=== PATIENT | male | born 1945 | race Caucasian/White ===

== ENCOUNTER 2017-08-03 11:20 | Emergency (ER) | payer OTHER ==
[~2017-08-03] VITALS: Ht 188 cm; Wt 117.9 kg
[2017-08-03] MEDS ORDERED: ASPIRIN EC81 M1 PO (11:29)
[2017-08-03] MEDS ORDERED: LIPITOR 20 MG T20 M1 PO (11:29)
[2017-08-03] MEDS ORDERED: PERCOCET 5-3251 EACH PO (14:07)
[2017-08-03 14:39] VITALS: BP 197/80
== END 2017-08-03 14:41 | disposition home or self-care (01) ==
LOC: M.ERS 11:20
DX: S83.411A Sprain of medial collateral ligament of right knee, initial encounter (principal); S93.401A Sprain of unspecified ligament of right ankle, initial encounter; S63.501A Unspecified sprain of right wrist, initial encounter; I10 Essential (primary) hypertension; E78.5 Hyperlipidemia, unspecified; Z88.5 Allergy status to narcotic agent; Z88.0 Allergy status to penicillin; Z88.8 Allergy status to other drugs, medicaments and biological substances; W00.0XXA Fall on same level due to ice and snow, initial encounter; Y93.89 Activity, other specified; Y92.89 Other specified places as the place of occurrence of the external cause; Y99.8 Other external cause status

== ENCOUNTER 2018-07-19 18:38 | Inpatient (IN) | payer OTHER ==
[~2018-07-19] VITALS: Ht 185.4 cm; Wt 114.8 kg
[~2018-07-19 18:38] MED LIST: ASPIRIN EC81 M1 PO; LIPITOR 20 MG T20 M1 PO; PERCOCET 5-3251 EACH PO
[2018-07-19 18:47] VITALS: BP 193/93
[2018-07-19] MEDS ORDERED: LOPRESSOR25 PO (18:50)
[2018-07-19] MEDS ORDERED: PRINIVIL20 M1 PO (18:50)
[2018-07-19] MEDS ORDERED: ZOCOR20 MG PO (18:50)
[2018-07-19 19:24] LABS: ABSOLUTE BASOPHILS 0.1 thou/uL (0.0-0.2); ABSOLUTE EOSINOPHILS 0.4 thou/uL (0.0-0.7); ABSOLUTE LYMPHOCYTES 2.1 thou/uL (0.8-5.3); ABSOLUTE MONOCYTES 0.7 thou/uL (0.0-1.2); ABSOLUTE NEUTROPHILS 6.4 thou/uL (1.6-8.1); BASOPHILS 0.8 %; EOSINOPHILS 4.3 %; HEMATOCRIT 43.5 % (42.0-52.0); HEMOGLOBIN 14.3 gm/dL (14.0-18.0); LYMPHOCYTES 21.6 %; MCH 31.8 pg (26.0-34.0); MCHC 32.8 g/dL (28.0-37.0); MCV 97.1 fL (80.0-100.0); MPV 8.7 fl. (7.2-11.1); NUCLEATED RBCS 0 /100WBC; PLATELET COUNT* 234 thou/uL (150-400); POLYS 66.3 %; RBC 4.48 mil/uL (4.50-6.00); RDW-CV 13.9 % (10.5-14.5); WBC 9.7 thou/uL (4.0-11.0)
[2018-07-19 19:27] LABS: ANION GAP 10 mmol/L (7-16); BUN 14 mg/dL (7-18); CALCIUM 8.7 mg/dL (8.5-10.1); CHLORIDE 100 mmol/L (98-107); CO2 27 mmol/L (21-32); CREATININE 1.2 mg/dL (0.6-1.3); GLUCOSE 103 mg/dL (70-99); POTASSIUM 3.9 mmol/L (3.5-5.1); SODIUM 137 mmol/L (136-145)
[2018-07-19 19:31] LABS: APTT 27.1 Seconds (25.0-31.3); PROTIME 10.4 Seconds (9.20-11.50)
[2018-07-19 19:33] LABS: ALBUMIN 3.9 g/dL (3.4-5.0); ALKALINE PHOSPHATASE 96 U/L (46-116); CHOLESTEROL 170 mg/dL (<200); HDL CHOLESTEROL 57 mg/dL (>40); LDL CHOLESTEROL 83 mg/dL (<100); SERUM ASSESSMENT CLEAR; SGOT 18 U/L (15-37); SGPT 16 U/L (30-65); TOTAL BILIRUBIN 0.6 mg/dL (<0.1-1.0); TOTAL PROTEIN 7.5 g/dL (6.4-8.2); TRIGLYCERIDE 151 mg/dL (<150); TROPONIN-I LEVEL 0.36 ng/mL (<0.06); VLDL 30 mg/dL (<40)
[2018-07-19 19:40] VITALS: BP 164/90
[2018-07-19] MEDS ORDERED: SALONPAS DEEP R78 GM TOP (21:56)
[2018-07-19] MEDS ORDERED: TYLENOL EXTRA500 MG PO (21:58)
[2018-07-19 22:00] VITALS: BP 148/72
[2018-07-19 23:00] VITALS: BP 149/80
--- NOTE | 2018-07-19 23:32 | NUR ---
ADMITTED TO ICU BED 4 AT 2049 FROM LAMINATOR, SEE ASSESSMENTS. R GROIN SHEATH IN PLACE, DRESSING C/D/I WITH NO BRUISING OR HEMATOMA, DISTAL PULSES EQUAL. PT DENIES TINGLING NUMBNESS OF RLE. CHEST PAIN, SOA, AND ANY OTHER DISCOMFORT. HOME MED LIST BROUGHT BY , UPDATED IN MED RECONCILIATION. PT AND FAMILY ORIENTED TO ROOM AND ICU PROCEDURES, VERBALIZED UNDERSTANDING. CALL LIGHT WITHIN REACH.
[2018-07-20] VITALS (20 sets, daily range): BP systolic 119–181; BP diastolic 42–99
[2018-07-20 02:26] LABS: HEMATOCRIT 39.2 % (42.0-52.0); HEMOGLOBIN 13.1 gm/dL (14.0-18.0); MCH 31.7 pg (26.0-34.0); MCHC 33.3 g/dL (28.0-37.0); MPV 8.5 fl. (7.2-11.1); RBC 4.13 mil/uL (4.50-6.00); RDW-CV 14.1 % (10.5-14.5); WBC 7.8 thou/uL (4.0-11.0)
[2018-07-20 02:45] LABS: ALBUMIN 3.4 g/dL (3.4-5.0); CALCIUM 8.8 mg/dL (8.5-10.1); CREATININE 1.1 mg/dL (0.6-1.3); TOTAL BILIRUBIN 0.7 mg/dL (<0.1-1.0); TOTAL PROTEIN 6.6 g/dL (6.4-8.2)
[2018-07-20 02:58] LABS: TROPONIN-I LEVEL 16.18 ng/mL (<0.06)
--- NOTE | 2018-07-20 03:10 | NUR ---
SHEAT REMOVED AT 0215. CONTINUOUS MANUAL PRESSURE HELD FOR 30 MINUTES AND GRADUALLY RELEASED. HOMEOSTASIS OBTAINED AT 0250. DRESSING C/D/I, <1CM HEMATOMA PRESENT, MINIMAL BRUISING PRESENT. NO CHANGE IN DISTAL PULSES OR SENSATION.
--- NOTE | 2018-07-20 06:50 | NUR ---
PATIENT DENIES CHEST PAIN, NAUSEA, SWEATING, SOB SINCE ON UNIT. ARTERIAL SHEATH REMOVED AT 0215, PATIENT TOLERATED WELL. NO BLEEDING, SWELLING, REDNESS AT SITE, DRESSING DRY AND INTACT. Q2 TURNS WITH PILLOWS WHILE KEEPING RIGHT LOWER EXTREMITY STRAIGHT. O2 NC REMOVED AT 0300, PATIENT KEEPS SPO2>93%. CALL LIGHT WITHIN REACH.
[2018-07-20] MEDS ORDERED: MOBIC15 MG PO (07:33)
[2018-07-20] MEDS ORDERED: ATROVENT HFA14 GM INH (07:44)
[2018-07-20] MEDS ORDERED: VENTOLIN HFA 1818 GM INH (07:45)
--- NOTE | 2018-07-20 08:07 | CARD ---
[address] [address] CARDIAC CATH REPORT Name: ANNITA LUGO JR Room: [address] IN [facility]#: [id number] Admission: 07/19/18 Attend Phys: Andi Schumacher MD Discharge: Date of : 45 Report #: [id number] THIS REPORT FOR: //name// APPROVED REPORT Study performed: 07/19/2018 19:22:21 Patient Details Patient Status: ED Room #: 18 The patient is a 72 year-old male Event Personnel Mir Collins Medical Examiner, Maye Townsend RN Material Reprocessing Associate, Jyoti Carrera RN Monitor, Murali Lo (R) Scrub Procedures Performed Art Access - R femoral artery* Left Heart Cath w/or w/o Coronaries [facility] Revasc AMI Total/Sub Single RCA Indication STEMI (>0 to less than or equal to 6 hours), Dyspnea, Chest pain Risk Factors Hypercholesterolemia, Hypertension Admission/Lab Medications/Medications given during procedure Aspirin, Heparin Low Molecular Weight, Platelet Aff. Inhib. Procedure Narrative The patient was brought emergently to the Cardiac Catheterization Laboratory and was prepped and draped in a sterile manner. The right femoral was infiltrated with 2% Lidocaine subcutaneous anesthesia. A 6fr Ultimum Sheath sheath was inserted into the right femoral artery. Coronary angiography was performed using coronary diagnostic catheters. The right coronary system was accessed and visualized with a 6Fr JR4 catheter. The left coronary system was accessed and visualized with a 6FrJL4 catheter. The left ventricle was accessed and visualized with a 6Fr Pigtail catheter. Hemostasis was obtained with manual pressure following sheath removal without any complications. The patient tolerated the procedure well and there were no complications associated with the procedure. Fluoro Time: 11.1 [place] [address] CARDIAC CATH REPORT Name: ANNITA LUGO JR Room: [address] IN [facility]#: [id number] Admission: 07/19/18 Attend Phys: Andi Schumacher MD Discharge: Date of : 45 Report #: [id number] Dose: DAP 22365 cGycm2 1760 mGy Contrast Type and Amount: Visipaque 230 ml Coronary Angiography The patient's coronary anatomy is right dominant. Diagnostic Cath Left Main This is a moderate to large caliber vessel, with mild disease at the ostium, less than 20%. LAD This is a moderate size caliber vessel, traversing the anterior wall and wrapping around the apex. There is mild diffuse disease in the proximal and mid segments, less than 20%. Diagonal 1 There is mild to moderate diffuse disease in the proximal segment, 30-40%. Circumflex There is a moderate stenosis at the ostium, 40%. OM1 This is a moderate size caliber vessel, with a borderline stenosis in the proximal segment, 60%. OM2 This is a small-caliber vessel, with no flow-limiting lesions. Right Coronary This is a dominant vessel with a total occlusion in the midsegment. R PDA This is a patent vessel, with no flow-limiting lesions. RPLV This is a patent vessel, with no flow-limiting lesions. Left Ventriculography The left ventricle is mildly dilated in size with decreased contractility. The left ventricular ejection fraction is estimated to be 35%. There is hypokinesis of the inferior wall. Hemodynamics The aortic pressure is 163/75 mmHg with a mean of 109 mmHg. The left ventricular pressure is 131/2 mmHg with a mean of mmHg. The left ventricular end diastolic pressure is 16 mmHg. Pullback from the left ventricle to the aorta revealed no gradient across the aortic valve. PCI Technique Lesion Anticoagulation was achieved with Angiomax. Patient was preloaded with Angiomax IV 16.5 ml. Percutaneous coronary intervention was performed on the mid right coronary artery. The lesion stenosis prior to intervention was 100% with ELLY 0 flow. A Launcher JR 4 6FR Guide Catheter was used to engage the ostium. A KARL: Jose Wire 180 Interventional Guidewire was used to cross the lesion[place] [address] CARDIAC CATH REPORT Name: ANNITA LUGO JR Room: [facility] IN M.R.#: [id number] Admission: 07/19/18 Attend Phys: Andi Schumacher MD Discharge: Date of : 45 Report #: [id number] A Balloon catheter Mini Trek RX 2.0 X 15 was inserted and inflated up to 12.00atm for 7seconds. Additional Inflation: 14.00atm for 6seconds. STENT DEPLOYMENT A drug-eluting stent Xience Alpine RX 3.0X18 was inserted and inflated up to 10.00atm for 14seconds. Additional Inflation: 12.00atm for 12seconds. At the distal edge of the stent, there appeared to be a dissection- a second stent was dilated over this area, overlapping the first stent. POST STENT DEPLOYMENT BALLOON DILATION A Balloon catheter NC Trek RX 3.25 X 12 was inserted and inflated up to 18.00atm for 14seconds. Final angiography reveals 0 % stenosis with ELLY 3 flow. STENT DEPLOYMENT A drug-eluting stent Xience Ema 3.0X12mm was inserted and inflated up to 12.00atm for 12seconds. Additional Inflation: 14.00atm for 8seconds. POST STENT DEPLOYMENT BALLOON DILATION A Balloon catheter NC Trek RX 3.25 X 12 was inserted and inflated up to 16.00atm for 18seconds. Additional Inflation: 18.00atm for 14seconds. Conclusion 1. Successful insertion of drug-eluting stents into the total occlusion in the mid RCA segment. 2. Borderline stenosis in OM1. 3. At least moderate segmental LV dysfunction. 4. Recommend dual antiplatelet therapy and aggressive risk factor management. <ELECTRONICALLY SIGNED> By: Mir Collins MD 07/20/18805 5 5Mir Collins MD /INF
--- NOTE | 2018-07-20 08:39 | CON ---
[address] [address] CONSULTATION Name: ANNITA LUGO JR Room: [address] IN ..#: [id number] Admission: 07/19/18 Attend Phys: Andi Schumacher MD Discharge: Date of : 45 Report #: [id number] THIS REPORT FOR: //name// CC: Servando Schumacher DATE OF SERVICE: 07/19/2018 CARDIOLOGY CONSULTATION INDICATION: Chest pain. HISTORY OF PRESENT ILLNESS: This is a 72-year-old gentleman with a history of hypertension, hypercholesterolemia and arthritis, presenting with chest discomfort. Around 04:00 p.m. this afternoon, he developed a mild discomfort in the upper neck area, associated with mild dyspnea. He went home and the pain persisted. He denies any fever, chills, nausea or diarrhea. He came to the ER approximately 2 hours after the onset of symptoms. The ECG revealed mild ST-elevation in the inferior leads. He was noted to be hypertensive. He was treated with aspirin, Brilinta and heparin. PAST MEDICAL HISTORY: Hypertension, hypercholesterolemia, osteoarthritis with recent knee surgery. ALLERGIES: INCLUDE HYDROCODONE AND PENICILLIN. MEDICATIONS: Include aspirin 81 mg, simvastatin 40 mg, metoprolol 25 mg and lisinopril 20 mg daily. SOCIAL HISTORY: He denies tobacco use. FAMILY HISTORY: Negative for premature CAD. REVIEW OF SYSTEMS: A full 10-point review of systems is performed. Only the pertinent positives and negatives are described in the HPI. PHYSICAL EXAMINATION: VITAL SIGNS: Initial blood pressure is 190/80, heart rate of 80 beats per minute. GENERAL APPEARANCE: This is an elderly appearing male, in mild distress. HEENT: Normocephalic, atraumatic. Oral mucosa moist. NECK: Supple. LUNGS: CTA. CARDIAC: Regular rate and rhythm, S1, S2 positive. ABDOMEN: Soft, nontender. EXTREMITIES: No [place] [address] CONSULTATION Name: BRITTNEYANNITA Cherri HERNANDEZ Room: [address] IN [facility]#: [id number] Admission: 07/19/18 Attend Phys: Andi Schumacher MD Discharge: Date of : 45 Report #: [id number] NEUROLOGIC: Alert and oriented x 3. LABORATORY DATA: Laboratory values are pending. ECG reveals sinus rhythm, 1-mm ST elevation in the inferior leads, reciprocal ST segment depressions in the precordial leads. ASSESSMENT AND PLAN: 1. Acute inferior wall myocardial infarction. The patient was treated with aspirin, Brilinta, and heparin. He will be taken emergently to the cardiac lab support service tech. 2. Hypertension, elevated due to ongoing ischemia. We will continue home medications. 3. Hypercholesterolemia, tolerating statin therapy, reports no myalgias. <ELECTRONICALLY SIGNED> By: Mir Collins MD 07/20/18 0839 41 [id number] carl Canseco
--- NOTE | 2018-07-20 12:55 | NUR ---
PATIENT REMAINS A&O X 4, PLEASANT AND COOPERATIVE WITH CARES. DENIES CHEST PAIN OR SOB. RIGHT GROIN SITE IS C/D/I WITHOUT HEMATOMA. AT BEDSIDE. NO FURTHER CONCERNS AT THIS TIME. WILL CONTINUE TO MONITOR AND CARE PER PLAN OF CARE.
--- NOTE | 2018-07-20 13:45 | EKG ---
[place] [address] ELECTROCARDIOGRAM REPORT Name: ANNITA LUGO JR Room: [address] ADM IN M.R.#: [id number] Admission: 07/19/18 Attend Phys: Andi Schumacher MD Discharge: Date of : 45 Report #: [id number] THIS REPORT FOR: //name// [facility] ED Test Date: 2018-07-19 Test Time: 18:48:04 Pat Name: ANNITA LUGO Department: Room: [address] Gender: M Fruit Pitter: Jese PENNY : 1945 Requested By: Mir Collins Order Number: [id number] Darrius MD: Eric Cespedes Measurements Intervals [place] Rate: 88 P: 61 MA: 184 QRS: 54 QRSD: 120 T: -30 QT: 380 QTc: 460 Interpretive Statements Sinus rhythm Nonspecific intraventricular conduction delay Inferior infarct, age indeterminate No previous ECG available for comparison Electronically Signed On 07-20-2018 13:45:11 JAVA FRONT END WEB DEVELOPER by Eric Cespedes [email or web address] <ELECTRONICALLY SIGNED> By: Eric Cespedes MD, [facility] 07/20/18 1345 1848 1848 Eric Cespedes MD, FACC /EPI
--- NOTE | 2018-07-20 13:47 | EKG ---
[place] [address] ELECTROCARDIOGRAM REPORT Name: ANNITA LUGO JR Room: [address] ADM IN M.R.#: [id number] Admission: 07/19/18 Attend Phys: Andi Schumacher MD Discharge: Date of : 45 Report #: [id number] THIS REPORT FOR: //name// [facility] Test Date: 2018-07-19 Test Time: 22:44:38 Pat Name: ANNITA LUGO Department: Room: [facility] Gender: M Rug Designer: UNKNOWN : 1945 Requested By: Lyric Duarte Order Number: [id number] MD: Eric Cespedes Measurements Intervals [place] Rate: 80 P: 80 [place]: 167 QRS: 52 QRSD: 110 T: -55 QT: 431 QTc: 498 Interpretive Statements Sinus rhythm Inferior infarct, age indeterminate Electronically Signed On 07-20-2018 13:47:29 SPECIAL FORCES ENGINEER SERGEANT by Eric Cespedes [email or web address] <ELECTRONICALLY SIGNED> By: Eric Cespedes MD, [facility] 07/20/18 1347 2244 2244 Eric Cespedes MD, FACC /EPI
--- NOTE | 2018-07-20 13:53 | EKG ---
[place] [address] ELECTROCARDIOGRAM REPORT Name: ANNITA LUGO JR Room: [address] ADM IN M.R.#: [id number] Admission: 07/19/18 Attend Phys: Andi Schumacher MD Discharge: Date of : 45 Report #: [id number] THIS REPORT FOR: //name// Test Date: 2018-07-20 Test Time: 09:36:28 Pat Name: ANNITA LUGO Department: Room: [address] Gender: M Caretaker Grounds: : 1945 Requested By: Mir Collins Order Number: [id number] Darrius MD: Eric Cespedes Measurements Intervals [place] Rate: 75 P: 67 NC: 159 QRS: 35 QRSD: 110 T: -55 QT: 449 QTc: 502 Interpretive Statements Sinus rhythm Inferior infarct, age indeterminate Prolonged QT interval Electronically Signed On 07-20-2018 13:53:30 INFANTRY WEAPONS CREWMEMBER by Eric Cespedes [email or web address] <ELECTRONICALLY SIGNED> By: Eric Cespedes MD, [facility] 07/20/18 1353 0936 0936 Eric Cespedes MD, FACC /EPI
--- NOTE | 2018-07-20 15:00 | NUR ---
SPOKE WITH PT. HE LIVES WITH HIS , HAS BEEN ACTIVE AND INDEP. PT PLANS TO FOLLOW UP WITH HIS OWN HEARING AND SPEECH ASSISTANT, DR. MIGUEL FLORES AT COUNT INCLUDES THE [facility] IN [place]. DR. FLORES'S CONTACT INFORMATION ADDED TO PT'S DISCHARGE INSTRUCTIONS. PT DENIES ANY DISCHARGE NEEDS, WANTS TO GO HOME TODAY.
[2018-07-20 19:07] LABS: GLYCOHEMOGLOBIN (HGB A1C) 5.7 % (4.8-5.6)
[2018-07-21] VITALS (11 sets, daily range): BP systolic 119–150; BP diastolic 54–77
--- NOTE | 2018-07-21 04:26 | NUR ---
PT IS PROGRESSING WELL DURING NOC SHIFT WITH NO COMPLAINTS OF CHEST PAINS OR SHORTNESS OF BREATH. ASSESSMENT CHARTED. PLANS ARE FOR DC TODAY WITH PT FOLLOWING UP WITH PROFESSOR OF SPECIAL EDUCATION OUTPATIENT. CALL LIGHT IN REACH. CONTINUE OF PLAN OF CARE.
[2018-07-21] MEDS ORDERED: NITROGLYCERIN0.4 MG SUBLING (10:38)
[2018-07-21] MEDS ORDERED: PLAVIX 75 MG TA75 M1 PO (10:39)
[2018-07-21] MEDS ORDERED: TOPROL XL25 MG PO (10:46)
[2018-07-21] MEDS ORDERED: ZOCOR20 MG PO (10:54)
--- NOTE | 2018-07-21 11:58 | EKG ---
[place] [address] ELECTROCARDIOGRAM REPORT Name: ANNITA LUGO JR Room: [address] ADM IN M.R.#: [id number] Admission: 07/19/18 Attend Phys: Andi Schumacher MD Discharge: Date of : 45 Report #: [id number] THIS REPORT FOR: //name// [facility] Test Date: 2018-07-21 Test Time: 07:49:00 Pat Name: ANNITA LUGO Department: Room: [address] Gender: M Director Financial Analysis: : 1945 Requested By: Eric Cespedes Order Number: [id number] Reading MD: Eric Cespedes Measurements Intervals [place] Rate: 67 P: 69 MD: 171 QRS: 50 QRSD: 117 T: -63 QT: 443 QTc: 468 Interpretive Statements Sinus rhythm Nonspecific intraventricular conduction delay Inferior infarct, age indeterminate Compared to ECG 07/20/2018 09:36:28 Intraventricular conduction delay now present Prolonged QT interval no longer present Myocardial infarct finding still present Electronically Signed On 07-21-2018 11:57:49 COMMERCIAL LENDING RELATIONSHIP MANAGER by Eric Cespedes [email or web address] <ELECTRONICALLY SIGNED> By: Eric Cespedes MD, [facility] 07/21/18 1157 0749 0749 Eric Cespedes MD, [facility] /EPI
--- NOTE | 2018-07-21 12:23 | NUR ---
PT DISCHARGED AT 1215. PT ORDERS HAD ASPIRIN 81MG PO EVERY OTHER DAY. PT WAS TOLD ASPIRIN DAILY. PT DID NOT WANT TO STAY TO CLARIFY ORDERS. PT REQUESTED A PHONE CALL WHEN DR SANTACRUZ CALLED BACK TO CLARIFY. DR. SANTACRUZ ORDERED ASPIRIN 81MG PO DAILY. CALLED PATIENT AND NOTIFIED HIM OF NEW ORDER.
== END 2018-07-21 12:15 | disposition home or self-care (01) | DRG 246 ==
LOC: M.CL 18:38 → M.ERS 18:38 → M.ICU 19:49 → M.TBA 19:49 → M.ICU 20:22
PROVIDERS: Internal Medicine Cardiovascular Disease; Personal Emergency Response Attendant; ADMIT Internal Medicine
PROC: 027035Z Dilation of Coronary Artery, One Artery with Two Drug-eluting Intraluminal Devices, Percutaneous Approach (ICD-10-PCS; principal; 2018-07-19)
PROC: 4A023N7 Measurement of Cardiac Sampling and Pressure, Left Heart, Percutaneous Approach (ICD-10-PCS; principal; 2018-07-19)
PROC: B211YZZ Fluoroscopy of Multiple Coronary Arteries using Other Contrast (ICD-10-PCS; principal; 2018-07-19)
DX: I21.19 ST elevation (STEMI) myocardial infarction involving other coronary artery of inferior wall (principal); I50.21 Acute systolic (congestive) heart failure; I11.0 Hypertensive heart disease with heart failure; E78.5 Hyperlipidemia, unspecified; E78.00 Pure hypercholesterolemia, unspecified; M19.90 Unspecified osteoarthritis, unspecified site; Z96.652 Presence of left artificial knee joint; I48.0 Paroxysmal atrial fibrillation; R73.9 Hyperglycemia, unspecified; I25.10 Atherosclerotic heart disease of native coronary artery without angina pectoris; Z79.899 Other long term (current) drug therapy; Z88.6 Allergy status to analgesic agent; Z88.0 Allergy status to penicillin; Z88.8 Allergy status to other drugs, medicaments and biological substances; Z87.891 Personal history of nicotine dependence

== ENCOUNTER 2019-04-12 16:54 | Inpatient (IN) | payer OTHER ==
[~2019-04-12] VITALS: Ht 185.4 cm; Wt 119.3 kg
[~2019-04-12 16:54] MED LIST changes: +ATROVENT HFA14 GM INH; +LOPRESSOR25 PO; +MOBIC15 MG PO; +NITROGLYCERIN0.4 MG SUBLING; +PLAVIX 75 MG TA75 M1 PO; +PRINIVIL20 M1 PO; +SALONPAS DEEP R78 GM TOP; +TOPROL XL25 MG PO; +TYLENOL EXTRA500 MG PO; +VENTOLIN HFA 1818 GM INH; +ZOCOR20 MG PO
[2019-04-12 17:04] VITALS: BP 140/116
[2019-04-12] MEDS ORDERED: AUGMENTIN 500-1 EACH PO (17:13)
[2019-04-12 17:39] LABS: ABSOLUTE BASOPHILS 0.1 thou/uL (0.0-0.2); ABSOLUTE EOSINOPHILS 0.6 thou/uL (0.0-0.7); ABSOLUTE LYMPHOCYTES 0.5 thou/uL (0.8-5.3); ABSOLUTE MONOCYTES 1.1 thou/uL (0.0-1.2); ABSOLUTE NEUTROPHILS 10.9 thou/uL (1.6-8.1); BASOPHILS 0.6 %; EOSINOPHILS 4.4 %; HEMATOCRIT 41.8 % (42.0-52.0); HEMOGLOBIN 13.9 gm/dL (14.0-18.0); LYMPHOCYTES 3.6 %; MCH 31.7 pg (26.0-34.0); MCHC 33.3 g/dL (28.0-37.0); MCV 95.2 fL (80.0-100.0); MONOCYTES 8.6 %; MPV 8.7 fl. (7.2-11.1); NUCLEATED RBCS 0 /100WBC; PLATELET COUNT* 237 thou/uL (150-400); POLYS 82.8 %; RBC 4.39 mil/uL (4.50-6.00); RDW-CV 13.3 % (10.5-14.5); WBC 13.1 thou/uL (4.0-11.0)
[2019-04-12 17:47] LABS: ANION GAP 10 mmol/L (7-16); BUN 15 mg/dL (7-18); CALCIUM 8.6 mg/dL (8.5-10.1); CHLORIDE 100 mmol/L (98-107); CO2 24 mmol/L (21-32); CREATININE 1.4 mg/dL (0.6-1.3); GLUCOSE 112 mg/dL (70-99); POTASSIUM 4.2 mmol/L (3.5-5.1); SODIUM 134 mmol/L (136-145)
[2019-04-12 17:58] LABS: ALBUMIN 3.4 g/dL (3.4-5.0); ALKALINE PHOSPHATASE 110 U/L (46-116); NT-PRO BRAIN NAT PEPTIDE 302 pg/mL (<300); SGOT 11 U/L (15-37); SGPT 16 U/L (30-65); TROPONIN-I LEVEL <0.06 ng/mL (<0.06)
[2019-04-12 19:45] VITALS: BP 136/53
[2019-04-12 21:00] VITALS: BP 105/42
[2019-04-13] VITALS (7 sets, daily range): BP systolic 108–144; BP diastolic 45–84
[2019-04-13 04:29] LABS: HEMATOCRIT 39.8 % (42.0-52.0); MCH 31.5 pg (26.0-34.0); MCHC 32.6 g/dL (28.0-37.0); MCV 96.6 fL (80.0-100.0); MPV 8.6 fl. (7.2-11.1); RBC 4.12 mil/uL (4.50-6.00); WBC 9.9 thou/uL (4.0-11.0)
[2019-04-13 04:50] LABS: CALCIUM 8.5 mg/dL (8.5-10.1); CREATININE 1.1 mg/dL (0.6-1.3); POTASSIUM 4.1 mmol/L (3.5-5.1)
--- NOTE | 2019-04-13 17:10 | NUR ---
ASSUMED PT CARE AT 0730, FULL ASSESMENT DONE CHARTED. PT A/O X4, C/O FLUSHING FROM STERIODS AND ITCHING SOMETIMES. PT INSTRUCTED ON NOTIFYING STAFF IF DIFFICULTY BREATHING OCCURS. PT VERBALIZED UNDERSTANDING. PT UP AD JOSÉ MIGUEL, ON 2L O2 THIS AM, WAS DECREASED TO 1L THIS AFTERNOON. PRODUCTIVE COUGH. VSS, SR ON THE MONITOR. WILL CONTINUE TO MONITOR.
[2019-04-14] VITALS: BP 143/69
[2019-04-14 03:10] LABS: GLYCOHEMOGLOBIN (HGB A1C) 5.9 % (4.8-5.6)
[2019-04-14 04:00] VITALS: BP 139/71
[2019-04-14 04:38] LABS: HEMATOCRIT 37.6 % (42.0-52.0); HEMOGLOBIN 12.5 gm/dL (14.0-18.0); MCH 31.6 pg (26.0-34.0); MCHC 33.2 g/dL (28.0-37.0); MCV 95.2 fL (80.0-100.0); MPV 8.4 fl. (7.2-11.1); RBC 3.94 mil/uL (4.50-6.00); RDW-CV 13.1 % (10.5-14.5); WBC 17.3 thou/uL (4.0-11.0)
[2019-04-14 04:50] LABS: CALCIUM 8.6 mg/dL (8.5-10.1); CREATININE 1.2 mg/dL (0.6-1.3); POTASSIUM 4.1 mmol/L (3.5-5.1)
--- NOTE | 2019-04-14 05:40 | NUR ---
PT CARE ASSUMED AT 1930. SAT MAINTAINED IN RA. ALERT AND ORIENTED X4. DENIES PAIN. C/O OF COUGH, FACE APPEARS FLUSHED WHILE COUGHING, MEDICATION GIVEN PER EMAR. CALL LIGHT WITHIN REACH AND BED IN LOW POSITION. HOURLY ROUNDING DONE FOR PT SAFETY.
[2019-04-14 06:45] LABS: INFLUENZA A ANTIGEN Negative (Negative); INFLUENZA B ANTIGEN Negative (Negative)
[2019-04-14 07:45] VITALS: BP 131/60
--- NOTE | 2019-04-14 10:39 | EKG ---
[place] [address] ELECTROCARDIOGRAM REPORT Name: ANNITA LUGO JR Room: [address] ADM IN .R.#: [id number] Admission: 04/12/19 Attend Phys: Cristin Khoury MD Discharge: Date of : 45 Report #: [id number] THIS REPORT FOR: //name// [facility] ED Test Date: 2019-04-12 Test Time: 16:58:24 Pat Name: ANNITA LUGO Department: Room: [facility] Gender: M Dope House Operator Helper: MS : 1945 Requested By: Mario Hobbs Order Number: [id number] MD: Gilles Hernandez Measurements Intervals [place] Rate: 109 P: 77 PA: 153 QRS: 47 QRSD: 104 T: -6 QT: 328 QTc: 442 Interpretive Statements Sinus tachycardia Inferior infarct, age indeterminate Baseline wander in lead(s) V2 Compared to ECG 07/21/2018 07:49:00 Sinus rhythm no longer present Intraventricular conduction delay no longer present Myocardial infarct finding still present Electronically Signed On 04-14-2019 10:39:14 CDT by Gilles Hernandez [email or web address] <ELECTRONICALLY SIGNED> By: Gilles Hernandez MD, FAC 04/14/19 1039 1658 1658 Gilles Hernandez MD, FAC /EPI
[2019-04-14 11:36] VITALS: BP 107/45
[2019-04-14 16:30] VITALS: BP 101/50
--- NOTE | 2019-04-14 18:57 | NUR ---
ASSUMED PT CARE AT 0730, FULL ASSESMENT DONE CHARTED. PT A/OX4, DENIES PAIN, DENIES SOA. PT STILL HAS PRODUCTIVE COUGH, THOUGH HE STATES HE IS NOT COUGHING MUCH YESTERDAY. PT ON RA, SATS 93%, VSS, SR ON THE MONITOR THIS AM, MADE M/S STATUS THIS AFTERNOON. LUNGS CLEAR. PT UP AD JOSÉ MIGUEL, USES CALL LIGHT APPROPRIALTY. PT TO TRANSFER TO ROOM 103 THIS EVENING, PT AND UPDATED. VERBALIZED UNDERSTANDING.
[2019-04-14 20:00] VITALS: BP 163/68
--- NOTE | 2019-04-15 05:08 | NUR ---
PT TRANSFERRED FROM TELE AT 1950. ALERT AND ORIENTED. SAT 93% RA. MEDS GIVEN ORDERED. PT TOLERATING BREATHING TREATMENT. SLEEPING ON HOURLY ROUNDINGS. WILL CONTINUE TO MONITOR.
[2019-04-15 05:23] LABS: HEMATOCRIT 36.7 % (42.0-52.0); HEMOGLOBIN 12.2 gm/dL (14.0-18.0); MCH 31.7 pg (26.0-34.0); MCHC 33.3 g/dL (28.0-37.0); MCV 95.2 fL (80.0-100.0); MPV 8.3 fl. (7.2-11.1); RBC 3.86 mil/uL (4.50-6.00); RDW-CV 13.1 % (10.5-14.5); WBC 14.3 thou/uL (4.0-11.0)
[2019-04-15 05:31] LABS: CALCIUM 8.3 mg/dL (8.5-10.1); CREATININE 1.1 mg/dL (0.6-1.3); MAGNESIUM 2.1 mg/dL (1.8-2.4); POTASSIUM 4.4 mmol/L (3.5-5.1)
[2019-04-15 08:00] VITALS: BP 156/70
[2019-04-15] MEDS ORDERED: TESSALON PERLE100 M1 PO (09:55)
[2019-04-15] MEDS ORDERED: LEVAQUIN 500 M500 M2 PO (09:55)
[2019-04-15] MEDS ORDERED: PREDNISONE 10 M10 MG PO (09:55)
[2019-04-15 11:38] VITALS: BP 156/70
--- NOTE | 2019-04-15 12:13 | NUR ---
PATIENT DISCHARGED FROM UNIT AT 1205. ALERT AND ORIENTED X 4. VITAL SIGNS STABLE ON ROOM AIR. UP INDEPENDENTLY IN ROOM. IV DISCONTINUED. DENIES PAIN AND NAUSEA AT THIS TIME. DISCHARGE INSTRUCTIONS, MEDICATION INFORMATION, AND SCRIPTS GIVEN TO PATIENT. LEFT WITH ALL BELONGINGS. PATIENT LEFT WITH VIA SUV.
[2019-04-15 12:15] VITALS: BP 156/70
== END 2019-04-15 12:30 | disposition home or self-care (01) | DRG 177 ==
LOC: M.ERS 16:54 → M.ORTHSURG 18:18 → M.TBA-ER 18:18 → M.2W 18:18 → M.ORTHSURG 04-14 19:51
PROVIDERS: Emergency Medicine Emergency Medical Services; ADMIT Internal Medicine
DX: J15.6 Pneumonia due to other Gram-negative bacteria (principal); J96.01 Acute respiratory failure with hypoxia; I10 Essential (primary) hypertension; E78.5 Hyperlipidemia, unspecified; I48.91 Unspecified atrial fibrillation; Z96.652 Presence of left artificial knee joint; Z88.0 Allergy status to penicillin; Z88.8 Allergy status to other drugs, medicaments and biological substances; Z79.82 Long term (current) use of aspirin; Z79.899 Other long term (current) drug therapy

== ENCOUNTER 2019-11-27 07:32 | Observation (INO) | payer OTHER ==
[2019-11-27] VITALS (10 sets, daily range): BP systolic 131–161; BP diastolic 63–84
[~2019-11-27] VITALS: Ht 185.4 cm; Wt 113.4 kg
[~2019-11-27 07:32] MED LIST changes: +AUGMENTIN 500-1 EACH PO; +BRILINTA90 MG PO; +LEVAQUIN 500 M500 M2 PO; +LIPITOR40 MG PO; +LISINOPRIL40 MG PO; +PREDNISONE 10 M10 MG PO; -PRINIVIL20 M1 PO; +TESSALON PERLE100 M1 PO; -TOPROL XL25 MG PO; +TOPROL XL50 MG PO
[2019-11-27 08:07] LABS: HEMATOCRIT 43.8 % (42.0-52.0); HEMOGLOBIN 14.8 gm/dL (14.0-18.0); MCH 32.2 pg (26.0-34.0); MCHC 33.7 g/dL (28.0-37.0); MCV 95.3 fL (80.0-100.0); MPV 8.4 fl. (7.2-11.1); RBC 4.59 mil/uL (4.50-6.00); RDW-CV 13.2 % (10.5-14.5)
[2019-11-27 08:16] LABS: ANION GAP 9 mmol/L (7-16); BUN 18 mg/dL (7-18); CHLORIDE 103 mmol/L (98-107); CO2 26 mmol/L (21-32); CREATININE 1.3 mg/dL (0.6-1.3); GLUCOSE 113 mg/dL (70-99); POTASSIUM 4.2 mmol/L (3.5-5.1); SODIUM 138 mmol/L (136-145)
[2019-11-27 08:20] LABS: ALBUMIN 3.9 g/dL (3.4-5.0); ALKALINE PHOSPHATASE 151 U/L (46-116); APTT 26.1 Seconds (25.0-31.3); CHOLESTEROL 169 mg/dL (<200); HDL CHOLESTEROL 47 mg/dL (>40); LDL CHOLESTEROL 79 mg/dL (<100); PROTIME 10.5 Seconds (9.20-11.50); SGOT 21 U/L (15-37); SGPT 23 U/L (30-65); TC:HDL 3.6 Ratio (Not establshd); TOTAL BILIRUBIN 0.9 mg/dL (<0.1-1.0); TOTAL PROTEIN 7.4 g/dL (6.4-8.2); TRIGLYCERIDE 217 mg/dL (<150); VLDL 43 mg/dL (<40)
[2019-11-27 08:21] LABS: SERUM ASSESSMENT Clear
[2019-11-27 14:59] LABS: HEMATOCRIT 41.2 % (42.0-52.0); HEMOGLOBIN 13.8 gm/dL (14.0-18.0); MCH 32.1 pg (26.0-34.0); MCHC 33.5 g/dL (28.0-37.0); MCV 96.1 fL (80.0-100.0); RBC 4.29 mil/uL (4.50-6.00); RDW-CV 13.2 % (10.5-14.5); WBC 6.8 thou/uL (4.0-11.0)
[2019-11-27 15:25] LABS: ANION GAP 9 mmol/L (7-16); BUN 17 mg/dL (7-18); CALCIUM 8.3 mg/dL (8.5-10.1); CHLORIDE 99 mmol/L (98-107); CO2 26 mmol/L (21-32); CREATININE 1.2 mg/dL (0.6-1.3); GLUCOSE 144 mg/dL (70-99); POTASSIUM 3.8 mmol/L (3.5-5.1); SODIUM 134 mmol/L (136-145); TROPONIN-I LEVEL <0.06 ng/mL (<0.06)
--- NOTE | 2019-11-27 16:37 | EKG ---
[place] [address] ELECTROCARDIOGRAM REPORT Name: ANNITA LUGO JR Room: [facility]#: [id number] Admission: 11/27/19 Attend Phys: Griselda Ramirez Discharge: Date of : 45 Date of Service: 11/27/19804 Report #: [id number] THIS REPORT FOR: //name// [facility] Test Date: 2019-11-27 Test Time: 08:05:01 Pat Name: ANNITA LUGO Department: Room: [facility] Gender: M Land Leveler: : 1945 Requested By: Dandre Kim Order Number: [id number] Darrius MD: Gilles Hernandez Measurements Intervals [place] Rate: 69 P: 69 [place]: 196 QRS: 21 QRSD: 106 T: -34 QT: 395 QTc: 423 Interpretive Statements Sinus rhythm Abnormal R-wave progression, early transition Inferior infarct, age indeterminate Compared to ECG 10/12/2019 12:33:13 No significant changes Electronically Signed On 11-27-2019 16:36:04 CDT by Gilles Hernandez [email or web address] <ELECTRONICALLY SIGNED> By: Gilles Hernandez MD, FAC 11/27/19 1636 4 Gilles Hernandez MD, [facility] /EPI
--- NOTE | 2019-11-27 16:39 | EKG ---
[place] [address] ELECTROCARDIOGRAM REPORT Name: ANNITA LUGO JR Room: [facility]#: [id number] Admission: 11/27/19 Attend Phys: Griselda Ramirez Discharge: Date of : 45 Date of Service: 11/27/19 1138 Report #: [id number] THIS REPORT FOR: //name// [facility] Test Date: 2019-11-27 Test Time: 11:38:12 Pat Name: ANNITA LUGO Department: Room: [place] [address] Gender: M Sanding Line Operator: : 1945 Requested By: Dandre Kim Order Number: [id number] Reading MD: Gilles Hernandez Measurements Intervals [place] Rate: 65 P: 77 CT: 199 QRS: 7 QRSD: 118 T: -29 QT: 418 QTc: 435 Interpretive Statements Sinus rhythm Nonspecific intraventricular conduction delay Inferior infarct, age indeterminate Compared to ECG 10/12/2019 12:33:13 Intraventricular conduction delay now present Myocardial infarct finding still present Electronically Signed On 11-27-2019 16:37:13 CDT by Gilles Hernandez [email or web address] <ELECTRONICALLY SIGNED> By: Gilles Hernandez MD, FACC 11/27/19 1637 1138 1138 Gilles Hernandez MD, [facility] /EPI
--- NOTE | 2019-11-27 16:39 | EKG ---
[place] [address] ELECTROCARDIOGRAM REPORT Name: ANNITA LUGO JR Room: [facility]#: [id number] Admission: 11/27/19 Attend Phys: Griselda Ramirez Discharge: Date of : 45 Date of Service: 11/27/19 1449 Report #: [id number] THIS REPORT FOR: //name// [facility] Test Date: 2019-11-27 Test Time: 14:49:37 Pat Name: ANNITA LUGO Department: Room: [place] [address] Gender: M Second Hand: : 1945 Requested By: Dandre Kim Order Number: [id number] Reading MD: Gilles Hernandez Measurements Intervals [place] Rate: 60 P: 70 [place]: 187 QRS: 23 QRSD: 111 T: -67 QT: 428 QTc: 428 Interpretive Statements Sinus rhythm Abnormal R-wave progression, early transition Inferior infarct, age indeterminate Compared to ECG 10/12/2019 12:33:13 No significant changes Electronically Signed On 11-27-2019 16:38:06 CDT by Gilles Hernandez [email or web address] <ELECTRONICALLY SIGNED> By: Gilles Hernandez MD, FACC 11/27/19 1638 1449 1449 Gilles Hernandez MD, [facility] /EPI
--- NOTE | 2019-11-27 17:03 | NUR ---
PATIENT CONTINUES TO HAVE BLEEDING WHEN URINATING. SPOKE WITH DR. CARTAGENA AND HE FEELS LIKE THE SMART THING IS TO KEEP PATIENT OVERNIGHT FOR OBSERVATION AND DISCHARGE HOME IN THE AM. PATIENT IS GOING TO 211 UNTIL IN THE AM.
--- NOTE | 2019-11-27 19:03 | NUR ---
PT RECEIVED FROM CATH AT 1745, A&O x4. VSS. UP AD JOSÉ MIGUEL. RT GROIN SITE LOOKS C,D,I. DENIES PAIN. NS AT 125 MLS/HR. BLOOD STAINED URINE, BRIGHT RED IN COLOR WITH CLOTS, NO DIFFICULTY URINATING. TOLERATING DIET.
[2019-11-28 00:13] VITALS: BP 108/75
[2019-11-28 04:10] VITALS: BP 128/70
[2019-11-28 04:20] LABS: HEMATOCRIT 40.2 % (42.0-52.0); HEMOGLOBIN 13.4 gm/dL (14.0-18.0); MCH 32.1 pg (26.0-34.0); MCHC 33.3 g/dL (28.0-37.0); MCV 96.2 fL (80.0-100.0); MPV 9.2 fl. (7.2-11.1); RBC 4.18 mil/uL (4.50-6.00); RDW-CV 13.4 % (10.5-14.5); WBC 8.5 thou/uL (4.0-11.0)
[2019-11-28 04:34] LABS: ALBUMIN 3.2 g/dL (3.4-5.0); CALCIUM 8.8 mg/dL (8.5-10.1); CREATININE 1.3 mg/dL (0.6-1.3); TOTAL BILIRUBIN 0.7 mg/dL (<0.1-1.0); TOTAL PROTEIN 6.3 g/dL (6.4-8.2); TROPONIN-I LEVEL 0.51 ng/mL (<0.06)
--- NOTE | 2019-11-28 04:40 | NUR ---
ASSUMED CARE AT 2010H, ON RA AND TOLERATED. NO CHEST PAIN. EARLY THE SHIFT, ASKED CARDIOLOGY IF HE WANTS THE BRILINTA TO BE HOLD BECAUSE PT STILL HAVE HEMATURIA AND BLOOD CLOTS IN HIS URINE, HE SAID GIVE IT AND CHECK CBC MIGUEL. NO MORE HEMATURIA AND BLOOD CLOTS FROM PT'S URINE. CONTINUE MONITORING AND TOWARDS GOALS. POSSIBLE DISCHARGES.
[2019-11-28 08:00] VITALS: BP 139/61
[2019-11-28 11:01] VITALS: BP 139/66
--- NOTE | 2019-11-28 11:55 | NUR ---
RECEIVED REPORT FROM SUSANA LEE. ASSUMED CARE OF PT AROUND 0730. PT A&O X4. HOCKEY INSTRUCTOR IN PLACE TRACING CHARTED. AM ASSESSMENT AND VITALS COMPLETED DOCUMENTED. MEDS PER EMAR. DR CARTAGENA IN TO SEE PT - DISCHARGE DISCUSSED AND DISCHARGE ORDERS RECEIVED. DISCHARGE ORDERS COMPLETED CHARTED. DISCHARGE SUMMARY GONE OVER WITH PT, PT COMMUNICATES UNDERSTANDING. PT AWARE OF FOLLOW UP APPOINTMENTS. IV AND CARIAC MONITOR REMOVED. ALL BELONGINGS GATHERED AND SENT OUT WITH PT. PT LEFT IN WHEELCHAIR WITH NURSING STAFF. PT LEFT HOSPITAL IN CAR WITH FAMILY.
--- NOTE | 2019-11-28 12:41 | CARD ---
[address] [address] CARDIAC CATH REPORT Name: ANNITA LUGO JR Room: [address] M.R.#: [id number] Admission: 11/27/19 Attend Phys: Dandre Kim MD, Discharge: 11/28/19 Date of : 45 Report #: [id number] THIS REPORT FOR: //name// cc: Servando Martinez MD, Alan J. MD ~ APPROVED REPORT Study performed: 11/27/2019 08:11:53 Patient Details Patient Status: Out-Patient Room #: The patient is a 74 year-old male Event Personnel Dandre Kim Instructor Of Education, Hannah Sofia RN RN, Andi Pierre Scrub, Melvi Rose RTR Monitor Procedures Performed Art Access - R femoral artery, Left Heart Cath w/or w/o Coronaries LHC, GABINO Place w/wo Plasty Single RCA, GABINO Place w/wo Plasty Addl BR OM 1 DESADDL , Hemostasis w/ Angioseal Indication Unstable angina Risk Factors Dysplipidemia , Hypercholesterolemia Previous Procedures/Diagnoses Previous GA Admission/Lab Medications/Medications given during procedure Angiomax IV bolus 17 mg per kg, Angiomax IV 39.76 ml, Nitroglycerin IC 200 mcg, Ticagrelor PO 90 mg Procedure Narrative The patient was brought electively to the Cardiac Catheterization Laboratory and was prepped and draped in a sterile manner. The right femoral was infiltrated with 2% Lidocaine subcutaneous anesthesia. A 6F Hurdland sheath was inserted into the right femoral artery. Coronary angiography was performed using coronary diagnostic catheters. The right coronary system was accessed and visualized with a 6F JR4 catheter. The left coronary system was accessed and visualized with a 6F JL4 catheter. The left ventricle was accessed and visualized with a 6F Pigtail catheter. Left ventricular/[place] [address] CARDIAC CATH REPORT Name: ANNITA LUGO JR Room: [address] M.R.#: [id number] Admission: 11/27/19 Attend Phys: Dandre Kim MD, Discharge: 11/28/19 Date of : 45 Report #: [id number] Valve gradient assessed via catheter pullback. Pre-demployment femoral angiogram was performed . Closure device was deployed with a 6 Fr Angioseal STS. The patient tolerated the procedure well and there were no complications associated with the procedure. There was no hematoma. Intraoperative Conscious Sedation Sedation start time: 09:44 Case end Time: 10:53 Fentanyl 25 mcg Versed 2 mg Fluoro Time: 18.9 minutes Dose: DAP 534146 cGycm2 2833 mGy Contrast Type and Amount: Visipaque 430 ml Diagnostic Cath Left Main 0% narrowing LAD 30% proximal LAD narrowing with 40% mid vessel narrowing Circumflex Nondominant vessel with 80% stenosis in the proximal portion of the first marginal branch Right Coronary Large dominant vessel with 70% proximal narrowing and 75% clefted mid vessel stenosis with a widely patent stent at the acute margin Left Ventriculography Left Ventriculography was not performed. Hemodynamics The aortic pressure is 133/55 mmHg with a mean of 70 mmHg. The left ventricular pressure is 111/-1 mmHg with a mean of mmHg. The left ventricular end diastolic pressure is 10 mmHg. PCI Technique Lesion Anticoagulation was achieved with Angiomax. Patient was preloaded with Angiomax IV bolus 17 mg per kg. Percutaneous coronary intervention was performed on the first obtuse marginal branch segment. The lesion stenosis prior to intervention was 80% with ELLY 3 flow. A 6FR LAUNCHER EBU 3.5 Guide Catheter was used to engage the left main ostium. A BMW 190cm Interventional Guidewire was used to cross the lesion. BALLOON DILATION A Balloon catheter Trek RX 2.25 X 8 was inserted and inflated up to 18.00atm for 14seconds. Additional Inflation: 18.00atm for 10seconds. [place] [address] CARDIAC CATH REPORT Name: ANNITA LUGO JR Room: [address] Leonila M.RBrianne#: [id number] Admission: 11/27/19 Attend Phys: Dandre Kim MD, Discharge: 11/28/19 Date of : 45 Report #: [id number] STENT DEPLOYMENT A drug-eluting stent Chente RX Stent 2.25X8mm was inserted and inflated up to 12.00atm for 8seconds. Additional Inflation: 12.00atm for 8seconds. Additional Inflation: 14.00atm for 7seconds. Final angiography reveals 0 % stenosis with ELLY 3 flow. PCI Technique Lesion 2 Percutaneous Coronary Intervention was performed on the mid right coronary artery. Patient was preloaded with Angiomax IV bolus 17 mg per kg. The lesion stenosis prior to intervention was 75% with ELLY 3 flow. A 6FR AR 1 SH Guide Catheter was used to engage the right ostium. A BMW 190cm Interventional Guidewire was used to cross the lesion. Balloon Dilation A Balloon catheter 3.0 x 15 NC EUPHORA was inserted and inflated up to 18.00atm for 12seconds. Stent Deployment A drug-eluting stent Xience Ema 3.67M70ke was inserted and inflated up to 14.00atm for 8seconds. Additional Inflation: 17.00atm for 10seconds. Post Stent Deployment Balloon Dilation A Balloon catheter NC TREK RX 3.5X12 was inserted and inflated up to 15.00atm for 6seconds. Additional Inflation: 16.00atm for 6seconds. Additional Inflation: 18.00atm for 8seconds. Final angiography reveals 10 % stenosis with ELLY 3 flow. PCI Technique Lesion 3 Percutaneous Coronary Intervention was performed on the proximal right coronary artery. Patient was preloaded with Angiomax IV bolus 17 mg per kg. The lesion stenosis prior to intervention was 75% with ELLY flow. A 6FR AR 1 SH Guide Catheter was used to engage the right ostium. A BMW 190cm Interventional Guidewire was used to cross the lesion. Stent Deployment A drug-eluting stent Xience Ema 3.5X8mm was inserted and inflated up to 16.00atm for 6seconds. Additional Inflation: 18.00atm for 7seconds. Additional Inflation: 22.00atm for 6seconds. Final angiography reveals 0 % stenosis with ELLY [address] [place] [address] CARDIAC CATH REPORT Name: ANNITA LUGO JR Room: [address]#: [id number] Admission: 11/27/19 Attend Phys: Dandre Kim MD, Discharge: 11/28/19 Date of : 45 Report #: [id number] flow. Conclusion 1. Significant multivessel coronary artery disease characterized by the following: A 30% proximal with 40% mid LAD narrowing B 80% stenosis of the proximal portion of the first marginal branch of the circumflex C 70% focal proximal right coronary stenosis with 75% clefted mid right coronary stenosis with a widely patent stent beyond this lesion 2. Normal left-sided hemodynamics study 3. Successful PCI with deployment of a drug-eluting stent at site of 80% stenosis of the first marginal branch of the circumflex with 0% residual narrowing 4. Successful PCI with deployment of sequential drug-eluting stents at the sites of 70% proximal and 75% clefted mid right coronary stenosis with 0 and 10% residual narrowings and ELLY-3 flow to the distal vessel Recommendations Cardiac Risk Reduction Program Aggressive Medical Therapy Medications Administered Ticagrelor Diagnostic Cath Approved by: Dandre Kim MD Date/Time: 11/28/2019 12:37:58 <ELECTRONICALLY SIGNED> By: Dandre Kim MD, [facility] 11/28/19 1239 1239 [id number] Kim MD, FACC /INF
--- NOTE | 2019-11-29 15:21 | D ---
[address] [address] DISCHARGE SUMMARY Name: BRITTNEYANNITA JR Room: [address] Leonila Castano#: [id number] Admission: 11/27/19 Attend Phys: Dandre Kim MD, Discharge: 11/28/19 Date of : 45 Report #: [id number] THIS REPORT FOR: //name// cc: Servando Martinez MD, Alan J. MD ~ THIS REPORT FOR: //name// CC: Servando Kim DATE OF SERVICE: 11/28/2019 The patient discharged from room 211. FINAL DISCHARGE DIAGNOSES: 1. Unstable angina. 2. Status post recent inferior infarction. 3. Status post percutaneous transluminal coronary angioplasty with stenting. 4. Hypertension. 5. Hyperlipidemia. 6. Carotid stenosis. 7. Tobacco abuse. 8. Hematuria. PROCEDURES: On 11/28/2019 -- left heart catheterization, selective coronary arteriography, and percutaneous coronary intervention of the right coronary artery and circumflex. The is a very pleasant 74-year-old male who presented several weeks ago with acute inferior infarction interrupted by stenting of the right coronary artery. He also had a significant lesion in the obtuse marginal and a question of significant lesions in the right coronary artery proximal to the area of acute occlusion. Recently, he has noted some angina, but no protracted pain like that associated with his myocardial infarction. In that context, I performed recatheterization on 11/27/2019, which revealed a widely patent right coronary stent in the right coronary and distally. He had 70% proximal and 75% calcified mid right coronary stenosis with 80% stenosis in the first marginal branch of the circumflex. I deployed 3 drug-eluting stents, 1 in the obtuse marginal branch of the circumflex, 1 in the proximal right coronary artery and 1 in the mid with 0 and 10% residual right coronary narrowings at the stented sites and 0% narrowing of the stented first marginal branch of the circumflex with ELLY 3 flow of the distal vessel. Troponin beltran minimally to 0.51. The patient had no chest [place] [address] DISCHARGE SUMMARY Name: ANNITA LUGO JR Room: [address] Leonila Castano#: [id number] Admission: 11/27/19 Attend Phys: Dandre Kim MD, Discharge: 11/28/19 Date of : 45 Report #: [id number] In the context of the Angiomax infusion and antiplatelet therapy, he developed hematuria with some clots. This gradually dissipated through the night and his urine was clear by the morning of 11/28/2019. He ambulated in the hallways without difficulty and there was good hemostasis at the right femoral site of catheterization. Laboratory revealed sodium 139, potassium 4.0, BUN 17, creatinine 1.3, and glucose 103. Hemoglobin of 13.4, white blood cell count 8500, hematocrit 40.2, and platelets 204,000. DISCHARGE MEDICATIONS: The patient was discharged to home on the following medications: Aspirin 81 mg p.o. every other day (in the context of his hematuria), ticagrelor or Brilinta 90 mg b.i.d., atorvastatin 40 mg daily, lisinopril 40 mg daily, and metoprolol succinate 50 mg daily. Additional medicines include p.r.n. acetaminophen, inhaled albuterol as needed, inhaled Atrovent as needed, and p.r.n. sublingual nitroglycerin. The patient is scheduled to return to see me in the office on 12/24/2019 at 0930. Therefore, the patient is discharged to home in stable condition on the aforementioned medications with followup as described above. <ELECTRONICALLY SIGNED> By: Dandre Kim MD, FACC 11/29/19 1521 1020 [id number] Kim MD, FACC /nt
== END 2019-11-28 12:00 | disposition home or self-care (01) ==
LOC: M.CL 07:32 → M.TBA-CV 10:54 → M.TBA-ER 17:02 → M.2W 18:01
PROVIDERS: ADMIT Internal Medicine
DX: I20.0 Unstable angina (principal); I10 Essential (primary) hypertension; E78.5 Hyperlipidemia, unspecified; R31.9 Hematuria, unspecified